=== PATIENT | male | born 1965 | race Two or more races ===

== ENCOUNTER 2023-10-31 22:15 | Emergency (ER) | payer SELFPAY ==
[~2023-10-31] VITALS: Ht 182.9 cm; Wt 83.9 kg
[2023-10-31 22:20] VITALS: BP 150/87; PULSE 80; RESP 20; O2SAT 98
== END 2023-10-31 22:53 | disposition left against medical advice (07) ==
LOC: EDBD 22:15 → ER 22:15
DX: T22.00XA Burn of unspecified degree of shoulder and upper limb, except wrist and hand, unspecified site, initial encounter (principal); T31.0 Burns involving less than 10% of body surface; Z53.21 Procedure and treatment not carried out due to patient leaving prior to being seen by health care provider; X10.1XXA Contact with hot food, initial encounter; Y93.89 Activity, other specified; Y92.89 Other specified places as the place of occurrence of the external cause; Y99.8 Other external cause status